=== PATIENT | male | born 1965 | race Caucasian/White ===

== ENCOUNTER 2017-10-22 09:09 | Day surgery (SDC) | payer BC ==
[2017-10-22] MEDS ORDERED: D5 LR 1000 ML 1,000 ML IV ONE (09:40)
[2017-10-22] MEDS ORDERED: DIPRIVAN VIAL 20 ML ONE (10:42)
[2017-10-22 13:29] VITALS: BP 120/67
== END 2017-10-22 11:22 | disposition home or self-care (01) ==
LOC: SURG1 09:09
PROVIDERS: ATTEND Internal Medicine Gastroenterology
PROC: 0DBN8ZX Excision of Sigmoid Colon, Via Natural or Artificial Opening Endoscopic, Diagnostic (ICD-10-PCS; principal; 2017-10-22 14:30)
PROC: 0DJD8ZZ Inspection of Lower Intestinal Tract, Via Natural or Artificial Opening Endoscopic (ICD-10-PCS; principal; 2017-10-22 14:30)
DX: Z12.11 Encounter for screening for malignant neoplasm of colon (principal); K63.5 Polyp of colon; K64.0 First degree hemorrhoids; D12.5 Benign neoplasm of sigmoid colon
CPT/HCPCS: A4217; J3490; J7120

== ENCOUNTER 2024-05-13 10:36 | Observation (INO) ==
[2024-05-13 12:06] LABS: BASOPHILS # (AUTO) 0.1 X10^3/uL (0.0-0.1); BASOPHILS % (AUTO) 0.6 % (0.2-1.0); EOSINOPHILS # (AUTO) 0.2 x10^3/uL (0.0-0.2); EOSINOPHILS % (AUTO) 1.6 % (0.9-2.9); HEMATOCRIT 29.8 % (42.0-54.0); HEMOGLOBIN 9.7 g/dL (13.5-18.0); LYMPHOCYTES # (AUTO) 0.7 X10^3/uL (1.3-2.9); LYMPHOCYTES % (AUTO) 5.8 % (21.0-51.0); MEAN CORPUSCULAR HEMOGLOBIN 24.6 pg (27.0-34.0); MEAN CORPUSCULAR HGB CONC 32.6 g/dL (33.0-35.0); MEAN CORPUSCULAR VOLUME 75.5 fL (80.0-100.0); MEAN PLATELET VOLUME 8.4 fL (7.4-11.0); MONOCYTES # (AUTO) 0.8 x10^3/uL (0.3-0.8); MONOCYTES % (AUTO) 6.8 % (0.0-13.0); NEUTROPHILS # (AUTO) 9.6 x10^3/uL (2.2-4.8); NEUTROPHILS % (AUTO) 85.2 % (42.0-75.0); PLATELET COUNT 188 X10^3/uL (150.0-450.0); RED BLOOD COUNT 3.94 X10^6/uL (4.7-6.0); RED CELL DISTRIBUTION WIDTH 15.5 % (11.6-16.5); WHITE BLOOD COUNT 11.2 X10^3/uL (3.6-10.0)
[2024-05-13 12:13] LABS: ALANINE AMINOTRANSFERASE 10 Units/L (12-78); ALBUMIN 2.8 g/dL (3.4-5.0); ALKALINE PHOSPHATASE 95 Units/L (46-116); ASPARTATE AMINO TRANSFERASE < 6 Units/L (15-37); BLOOD UREA NITROGEN 29 mg/dL (7-18); CARBON DIOXIDE 33.5 mmol/L (21-32); CHLORIDE 93 mmol/L (98-107); COR NA(FOR HYPERGLY) 140 mmol/L (136-145); CREATININE 1.43 mg/dL (0.70-1.30); GLUCOSE 317 mg/dL (65-99); LIPASE 20 Units/L (16-77); POTASSIUM 4.1 mmol/L (3.5-5.1); SODIUM 135 mmol/L (136-145); TOTAL PROTEIN 6.9 g/dL (6.4-8.2); eGFR NON BLACK RACES 54 (>60)
[2024-05-13] MEDS: NS 1,000 ML IV 1,000 ML IV SCH (13:12)
[2024-05-13 13:17] VITALS: BMI 20.9
[2024-05-13] MEDS: DEMEROL INJ IVP PRN (13:30)
[2024-05-13] MEDS: ZOFRAN INJ 4 MG VIAL IVP PRN (13:30)
[2024-05-13] MEDS ORDERED: OMNIPAQUE 350 mg/mL 100 mL BTL 100 ML ONE ×2 (13:41→17:08)
[2024-05-13 13:48] LABS: IRON 19 ug/dL (50-175); TOTAL IRON BINDING CAPACITY 142 ug/dL (250-450)
[2024-05-13] MEDS: LOVENOX INJ 40 MG SYR SC SCH (14:55)
[2024-05-13] MEDS ORDERED: NS 100 ML IV 100 ML ONE (17:08)
--- NOTE | 2024-05-13 18:21 | CT ---
EXAM:ABDCMEN/PELVIS WITH CONHISTORY:abdominal pain; LIVER TRANSPLANT [id number]:April 12, 2024 and April 16, 2020TECHNIQUE:Axial CT images of the abdomen and pelvis were obtained after the administration of 100 mL Omnipaque 350 IV contrast and reformatted into coronal and sagittal planes for further evaluation.Radiation dose: 193.41 mGy-cm total DLPFINDINGS:6 mm right lower lobe nodule; without significant change when compared to April 16, 2020.Distal esophageal wall thickening.Stomach appears normal.Heterogeneous mass in the pancreatic head measuring approximately 10 x 7.8 x 10.4 cm.Catheter extending from the anterior aspect of the mass into the pyloric region of the stomach.Atrophy of the pancreatic tail with mild dilatation of the main pancreatic duct.Spleen, adrenal glands and liver are grossly unremarkable.Status post cholecystectomy.Thrombus within the partially obstructed portal vein as seen on axial images 40-46.Homogeneous enhancement of the kidneys without hydronephrosis or hydroureter.Unremarkable appearance of the urinary bladder.Imaged reproductive structures are unremarkable.Unremarkable appearance of the large and small bowel.No evidence of acute appendicitis.No pneumoperitoneum.No significant fluid collection.No adenopathy.No acute osseous abnormality.Partially imaged soft tissue density adjacent to the posterior right T7 rib.Status post vertebroplasty at L2 and L4.IMPRESSION:1. Low-attenuation heterogeneous mass in the pancreatic head measuring 10 x 7.8 x 10.4 cm 7; significantly enlarged when compared to the previous exam. Finding is most consistent with a malignancy such as adenocarcinoma; correlate clinically.2. Partially imaged soft tissue density adjacent to the posterior right T7 rib. Finding is concerning for metastatic disease.3. Thrombus within the partially obstructed portal vein as seen on axial images 40-46.4. Mild distal esophageal wall thickening could represent esophagitis.THIS IS AN ELECTRONICALLY VERIFIED FINAL REPORT05/13/2024 6:18 PM - Electronically signed by Wil Rahman MD
[2024-05-13 19:19] LABS: BILIRUBIN,URINE NEGATIVE (NEGATIVE); BLOOD/HEMOGLOBIN,URINE NEGATIVE (NEGATIVE); GLUCOSE, URINE 4+ (NEGATIVE); KETONES,URINE 3+ (NEGATIVE); LEUKOCYTE ESTERASE ,URINE NEGATIVE (NEGATIVE); NITRITES,URINE NEGATIVE (NEGATIVE); PROTEIN,URINE 2+ (NEGATIVE); UROBILINOGEN,URINE NORMAL (NORMAL)
[2024-05-13 19:21] LABS: APPEARANCE,URINE TURBID (CLEAR); COLOR,URINE PALE YELLOW (YELLOW)
[2024-05-13 19:28] LABS: BACTERIA,URINE 4+ /HPF (NEGATIVE); RBC,URINE NONE SEEN /HPF (0-3); SQUAMOUS EPITHELIAL CELL,UR RARE /HPF (NEGATIVE)
[2024-05-13] MEDS: MAALOX or MYLANTA PO PRN (21:04)
[2024-05-13] MEDS: SNACK - Diabetic Appropriate PO SCH (23:14)
[2024-05-14] MEDS ORDERED: PHENERGAN INJ 25 MG IM ONE (05:24)
[2024-05-14] MEDS: PHENERGAN INJ 25 MG IM PRN (05:28)
[2024-05-14 05:56] LABS: BASOPHILS # (AUTO) 0.1 X10^3/uL (0.0-0.1); BASOPHILS % (AUTO) 1.2 % (0.2-1.0); EOSINOPHILS # (AUTO) 0.3 x10^3/uL (0.0-0.2); EOSINOPHILS % (AUTO) 2.4 % (0.9-2.9); HEMATOCRIT 31.2 % (42.0-54.0); HEMOGLOBIN 10.2 g/dL (13.5-18.0); LYMPHOCYTES # (AUTO) 0.8 X10^3/uL (1.3-2.9); LYMPHOCYTES % (AUTO) 7.6 % (21.0-51.0); MEAN CORPUSCULAR HGB CONC 32.9 g/dL (33.0-35.0); MEAN PLATELET VOLUME 8.7 fL (7.4-11.0); MONOCYTES # (AUTO) 0.7 x10^3/uL (0.3-0.8); MONOCYTES % (AUTO) 6.7 % (0.0-13.0); NEUTROPHILS # (AUTO) 8.5 x10^3/uL (2.2-4.8); NEUTROPHILS % (AUTO) 82.1 % (42.0-75.0); PLATELET COUNT 193 X10^3/uL (150.0-450.0); RED CELL DISTRIBUTION WIDTH 15.3 % (11.6-16.5); WHITE BLOOD COUNT 10.3 X10^3/uL (3.6-10.0)
[2024-05-14 06:03] LABS: ALANINE AMINOTRANSFERASE 8 Units/L (12-78); ALBUMIN 2.8 g/dL (3.4-5.0); ALKALINE PHOSPHATASE 95 Units/L (46-116); ASPARTATE AMINO TRANSFERASE < 6 Units/L (15-37); BLOOD UREA NITROGEN 25 mg/dL (7-18); CALCIUM 8.9 mg/dL (8.5-10.1); CARBON DIOXIDE 30.7 mmol/L (21-32); CHLORIDE 94 mmol/L (98-107); COR CA(FOR HYPOALB) 9.9 mg/dL (8.5-10.1); COR NA(FOR HYPERGLY) 140 mmol/L (136-145); CREATININE 1.19 mg/dL (0.70-1.30); GLUCOSE 263 mg/dL (65-99); POTASSIUM 3.9 mmol/L (3.5-5.1); SODIUM 136 mmol/L (136-145); TOTAL PROTEIN 6.9 g/dL (6.4-8.2); eGFR NON BLACK RACES > 60 (>60)
[2024-05-14] MEDS ORDERED: OMNIPAQUE 350 mg/mL 100 mL BTL 100 ML ONE (11:31)
[2024-05-14] MEDS ORDERED: AMBIEN PO PRN (11:40)
[2024-05-14] MEDS ORDERED: LEXAPRO ONE (12:07)
[2024-05-14] MEDS: DIFLUCAN 200 MG IV PREMIX* 200 MG/100 ML BAG IV SCH (12:23)
[2024-05-14] MEDS: PEPCID TAB 40 MG PO SCH (12:24)
[2024-05-14] MEDS: TAB-A-VITE PO SCH (12:24)
[2024-05-14] MEDS: TACROLIMUS PO SCH (12:25)
[2024-05-14] MEDS: LEXAPRO PO SCH (12:25)
[2024-05-14] MEDS: CHECK PATCH XX SCH (12:26)
[2024-05-14] MEDS: REQUIP PO SCH ×2 (12:32→20:28)
[2024-05-14] MEDS: PATIENT'S HOME MEDICATION PO SCH (12:35)
[2024-05-14] MEDS: NYSTATIN SUSP PO SCH (12:51)
[2024-05-14] MEDS ORDERED: [UNRECOGNIZED DRUG - REMARK] XX SCH (13:00)
[2024-05-14] MEDS: NovoLIN R (or HumuLIN R) SUBCUT PRN (13:02)
--- NOTE | 2024-05-14 13:33 | DR.H&P ---
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 He was directly admitted after failing outpatient treatment by his pcp. Labs/imaging: Wbc 11.2, Hgb 9.7, Plt 188, Na 136, K 3.9, Creatinine 1.19, Glucose 263, Lipase 20. Patient was admitted for abdominal pain and dehydration. Will get CT abdomen and pelvis for further evaluation. IV dilaudid prn for pain control. Antiemetics. IVF NS@125ml/h. Restart home medications after imaging. Otherwise, continue with current treatment plan. Continue to closely monitor and follow up labs/imaging. Past Medical History Past Medical History: Arthritis and Liver Disease Past Surgical History Surgical History: CABG/Valve Surgery, Cholecystectomy and Organ Transplant Family History Family Medical History: Diabetes Mellitus, Cancer, Coronary Artery Disease and Hypertension Social History Does patient currently use any type of tobacco product: No Type of Tobacco Use: None Alcohol Use: None Drug Use: None Medications Home Medications: Home Medications Medication Instructions Recorded Confirmed Type magnesium oxide 400 mg (241.3 mg 800 mg PO BID 09/24/16 05/13/24 History magnesium) tablet multivitamin (Tab-A-Oren tablet) 1 tab PO DAILY 09/24/16 05/13/24 History mycophenolate mofetil 250 mg 500 mg PO BID 09/24/16 05/13/24 History capsule (CellCept) aspirin 81 mg tablet,delayed 81 mg PO QDAY 04/12/24 05/13/24 History release escitalopram oxalate 10 mg tablet 10 mg PO QDAY 04/12/24 05/13/24 History famotidine 40 mg tablet 40 mg PO QDAY 04/12/24 05/13/24 History hydrocodone 10 mg-acetaminophen 1 tab PO QDAY PRN 04/12/24 05/13/24 History 325 mg tablet ropinirole 4 mg tablet 4 mg PO HS 04/12/24 05/14/24 History rotigotine 8 mg/24 hour 1 patch transdermal QDAY restless 04/12/24 05/13/24 History transdermal 24 hour patch (Neupro) legs tacrolimus 1 mg capsule, 2 mg PO BID 04/12/24 05/13/24 History immediate-release zolpidem 10 mg tablet 10 mg PO QPM 04/12/24 05/13/24 History amoxicillin 875 mg-potassium 1 tab PO BID 05/13/24 05/13/24 History clavulanate 125 mg tablet hydromorphone 4 mg tablet 4 mg PO QID PRN pain 05/13/24 05/13/24 History ondansetron HCl 4 mg tablet 4 mg PO Q8H PRN nausea 05/13/24 05/13/24 History Allergies Allergies Allergy/AdvReac Type Severity Reaction Status Date / Time No Known Allergies Allergy Verified 04/12/24 13:10 Labs 05/14/24 05:26 05/14/24 05:26 Labs: 05/13/24 19:05 Urine,Clean Catch Urine Culture - Preliminary Laboratory WBC 10.3 X10^3/uL (3.6-10.0) H 05/14/24 05:26 RBC 4.10 X10^6/uL (4.7-6.0) L 05/14/24 05:26 Hgb 10.2 g/dL (13.5-18.0) L 05/14/24 05:26 Hct 31.2 % (42.0-54.0) L 05/14/24 05:26 MCV 76.0 fL (80.0-100.0) L 05/14/24 05:26 MCH 25.0 pg (27.0-34.0) L 05/14/24 05:26 MCHC 32.9 g/dL (33.0-35.0) L 05/14/24 05:26 RDW 15.3 % (11.6-16.5) 05/14/24 05:26 Plt Count 193 X10^3/uL (150.0-450.0) 05/14/24 05:26 Plt Count Comment Cancelled 05/14/24 05:26 MPV 8.7 fL (7.4-11.0) 05/14/24 05:26 Neut % (Auto) 82.1 % (42.0-75.0) H 05/14/24 05:26 Lymph % (Auto) 7.6 % (21.0-51.0) L 05/14/24 05:26 [place] % (Auto) 6.7 % (0.0-13.0) 05/14/24 05:26 Eos % (Auto) 2.4 % (0.9-2.9) 05/14/24 05:26 Baso % (Auto) 1.2 % (0.2-1.0) H 05/14/24 05:26 Neut # (Auto) 8.5 x10^3/uL (2.2-4.8) H 05/14/24 05:26 Lymph # (Auto) 0.8 X10^3/uL (1.3-2.9) L 05/14/24 05:26 [place] # (Auto) 0.7 x10^3/uL (0.3-0.8) 05/14/24 05:26 Eos # (Auto) 0.3 x10^3/uL (0.0-0.2) H 05/14/24 05:26 Baso # (Auto) 0.1 X10^3/uL (0.0-0.1) 05/14/24 05:26 Absolute Nucleated RBC 0.0 /100WBC 05/14/24 05:26 Nucleated RBCs Cancelled 05/14/24 05:26 Atypical Lymphocytes Cancelled 05/14/24 05:26 Blast Cells Cancelled 05/14/24 05:26 Smudge Cells Cancelled 05/14/24 05:26 Toxic Granulation Cancelled 05/14/24 05:26 Dohle Bodies Cancelled 05/14/24 05:26 Adis Rods Cancelled 05/14/24 05:26 Plt Clumps, EDTA Cancelled 05/14/24 05:26 Giant Platelets Cancelled 05/14/24 05:26 Plt Morphology Comment Cancelled 05/14/24 05:26 RBC Morphology Cancelled 05/14/24 05:26 Dimorphic RBCs Cancelled 05/14/24 05:26 Polychromasia Cancelled 05/14/24 05:26 Hypochromasia Cancelled 05/14/24 05:26 Poikilocytosis Cancelled 05/14/24 05:26 Basophilic Stippling Cancelled 05/14/24 05:26 Anisocytosis Cancelled 05/14/24 05:26 Microcytosis Cancelled 05/14/24 05:26 Macrocytosis Cancelled 05/14/24 05:26 Spherocytes Cancelled 05/14/24 05:26 Pappenheimer Bodies Cancelled 05/14/24 05:26 Sickle Cells Cancelled 05/14/24 05:26 Target Cells Cancelled 05/14/24 05:26 Tear Drop Cells Cancelled 05/14/24 05:26 Ovalocytes Cancelled 05/14/24 05:26 Stomatocytes Cancelled 05/14/24 05:26 Helmet Cells Cancelled 05/14/24 05:26 [place] Bodies Cancelled 05/14/24 05:26 [place] Rings Cancelled 05/14/24 05:26 [place] Cells Cancelled 05/14/24 05:26 Crenated Cell Cancelled 05/14/24 05:26 Acanthocytes (Spur) Cancelled 05/14/24 05:26 Rouleaux Cancelled 05/14/24 05:26 Schistocytes Cancelled 05/14/24 05:26 Sodium 136 mmol/L (136-145) 05/14/24 05:26 Corrected Sodium 140 mmol/L (136-145) 05/14/24 05:26 Potassium 3.9 mmol/L (3.5-5.1) 05/14/24 05:26 Chloride 94 mmol/L (98-107) L 05/14/24 05:26 Carbon Dioxide 30.7 mmol/L (21-32) 05/14/24 05:26 BUN 25 mg/dL (7-18) H 05/14/24 05:26 Creatinine 1.19 mg/dL (0.70-1.30) 05/14/24 05:26 Est GFR (MDRD) Af Amer > 60 (>60) 05/14/24 05:26 Est GFR (MDRD) Non-Af > 60 (>60) 05/14/24 05:26 Glucose 263 mg/dL (65-99) H 05/14/24 05:26 POC Glucose (mg/dL) 306 mg/dL (65-99) H 05/14/24 12:48 Hemoglobin A1c 7.7 % 05/13/24 11:50 Calcium 8.9 mg/dL (8.5-10.1) 05/14/24 05:26 Corrected Calcium 9.9 mg/dL (8.5-10.1) 05/14/24 05:26 Iron 19 ug/dL (50-175) L 05/13/24 11:50 TIBC 142 ug/dL (250-450) L 05/13/24 11:50 Ferritin 2449 ng/mL (26-388) H 05/13/24 11:50 Total Bilirubin 0.60 mg/dL (0.2-1.0) 05/14/24 05:26 AST < 6 Units/L (15-37) L 05/14/24 05:26 ALT 8 Units/L (12-78) L 05/14/24 05:26 Alkaline Phosphatase 95 Units/L (46-116) 05/14/24 05:26 Total Protein 6.9 g/dL (6.4-8.2) 05/14/24 05:26 Albumin 2.8 g/dL (3.4-5.0) L 05/14/24 05:26 Globulin 4.1 g/dL (2.5-4.5) 05/14/24 05:26 Albumin/Globulin Ratio 0.7 Ratio (1.1-2.1) L 05/14/24 05:26 Lipase 20 Units/L (16-77) 05/13/24 11:50 Specimen Type Clean catch urine 05/13/24 19:05 Urine Color Pale yellow (YELLOW) 05/13/24 19:05 Urine Appearance Turbid (CLEAR) 05/13/24 19:05 Urine pH 6.0 (5.0 - 8.0) 05/13/24 19:05 Ur Specific [place] 1.030 (1.000-1.030) 05/13/24 19:05 Urine Protein 2+ (NEGATIVE) 05/13/24 19:05 Urine Glucose (UA) 4+ (NEGATIVE) 05/13/24 19:05 Urine Ketones 3+ (NEGATIVE) 05/13/24 19:05 Urine Blood Negative (NEGATIVE) 05/13/24 19:05 Urine Nitrite Negative (NEGATIVE) 05/13/24 19:05 Urine Bilirubin Negative (NEGATIVE) 05/13/24 19:05 Urine Urobilinogen Normal (NORMAL) 05/13/24 19:05 Ur Leukocyte Esterase Negative (NEGATIVE) 05/13/24 19:05 Urine RBC None seen /HPF (0-3) 05/13/24 19:05 Urine WBC 0-2 /HPF (0-5) 05/13/24 19:05 Ur Squamous Epith Cells Rare /HPF (NEGATIVE) 05/13/24 19:05 Amorphous Sediment 1+ /HPF (NEGATIVE) 05/13/24 19:05 Urine Bacteria 4+ /HPF (NEGATIVE) 05/13/24 19:05 Ur Culture Indicated? Yes/culture set up 05/13/24 19:05 Review of Systems Constitutional: No Symptoms Reported Eyes: No Symptoms Reported ENT: No Symptoms Reported Respiratory: No Symptoms Reported Cardiovascular: No Symptoms Reported Gastrointestinal: Nausea, Vomiting and Abdominal Pain Genitourinary: No Symptoms Reported Musculoskeletal: No Symptoms Reported Skin: No Symptoms Reported Neurological: No Symptoms Reported Physical Exam Vital Signs: Vital Signs Temperature 97.5 F Pulse Rate [Left Brachial] 105 Respiratory Rate 18 Respiratory Rate 18 Respiratory Rate 18 Blood Pressure [Right Arm] 129/77 O2 Sat by Pulse Oximetry 96 Oriented: Normal Eyes: Normal Ear: Normal Nose: Normal Throat: Normal Respiratory: Clear Throughout Cardiovascular: Normal : Normal Auscultation: Bowel Sounds: Decreased Palpation: Normal Tenderness: Diffuse Skin: Normal Musculoskeletal: Normal Psychiatric: Normal Mood Description: Calm and Appropriate Affect: Normal Speech Pattern: Clear and Appropriate Assessment/Plan (1) Acute upper abdominal pain: Status: Acute Plan: Pain control, antiemetics IVF, order CT abdomen and pelvis (2) Dehydration: Status: Acute (3) Cystic mass of pancreas: Status: Acute Review H&P Reviewed: Yes Patient was examined?: Yes
--- NOTE | 2024-05-14 13:45 | NOTE.SOAP ---
Soap Note Note for Day of Date of Exam: 05/14/24 Subjective Data Subjective Data: AM rounds with nurse and spouse at bedside. No change to pain. Wants to try to eat. CTAP w/ contrast concerning for metastatic disease. Spouse reports negative testing last week with biopsy report and serum studies. Full records pending. Objective Data Objective Data: Pained facies. Appropriate mood. A&Ox4. Hypoactive bowel sounds with epigastric tenderness. RRR. Lungs CTA b/l. Assessment Assessment: 1. Pancreatic mass (seems to be pseudocyst, but concern for adenocarcinoma on CTAP) 2. Lung mass, scarring vs metastasis. 3. epigastric pain Plan Plan: CT chest with contrast today. Fentanyl patch. Resume home meds. Full liquid diet. Obtain recent study results.
[2024-05-14] MEDS: MAG-OX TAB PO SCH (16:19)
[2024-05-14] MEDS ORDERED: ZOFRAN INJ 4 MG VIAL ONE (18:46)
[2024-05-14] MEDS ORDERED: NS 50 ML IV 50 ML IV ONE (18:47)
[2024-05-14] MEDS ORDERED: DECADRON INJ ONE (18:47)
[2024-05-14] MEDS ORDERED: ATIVAN INJ 2 MG VIAL ONE (18:49)
[2024-05-14] MEDS: ZOFRAN INJ 4 MG VIAL 16 MG, ATIVAN INJ 2 MG VIAL 1 MG, DECADRON INJ 10 MG in NS 50 ML I... IV PRN (19:06)
[2024-05-14] MEDS: COLACE CAP 100 MG PO SCH (20:31)
[2024-05-14] MEDS: AMBIEN PO SCH (20:32)
--- NOTE | 2024-05-14 23:29 | CT ---
EXAM: CHEST WITH CONTRAST HISTORY: R/O metestatic neoplasm; SX: LIVER TRANSPLANT X2, LUMBAR SX COMPARISON: March 15, 2021 TECHNIQUE: Axial CT images of the chest were obtained after the administration of 100 mL Omnipaque [address] Images were reformatted into the coronal and sagittal planes for further evaluation. Radiation dose: 207.32 mGy-cm total DLP FINDINGS: No pericardial effusion. Aorta and pulmonary arteries are normal in caliber. No hilar or mediastinal adenopathy. Thyroid appears normal. Central airways are widely patent. Mild distal esophageal wall thickening. Heterogeneous masslike foci involving the pancreatic head and uncinate process with atrophy of the pa ncreatic tail. Heterogeneous low-attenuation mass measures approximately 12 x 11.5 x 9.6 cm. [place] ge stent extending from the masslike foci to the distal body of the stomach through a bilobed tubular device placed in the anterior aspect of the masslike foci. Status post cholecystectomy. Partial obstruction of the portal vein adjacent to the masslike foci as seen on axial images 71-73. Mass along the posteromedial aspect of the right thoracic pleura abutting the posterior 7th right rib where there are erosive changes within the rib as seen on axial image 28. 6 mm right lower lobe nodule as seen on axial image 38. No effusion, focal infiltrate or pneumothorax. IMPRESSION: 1. Soft tissue mass along the posterior aspect of the right thoracic pleura abutting the posterior 7t h right rib where there are erosive changes. Findings are concerning for metastatic disease. 2. Low-attenuation heterogeneous multilobulated mass which appears to involve the pancreatic head and uncinate process with associated atrophy of the pancreatic tail. Findings are concerning for a neop lastic process such as adenocarcinoma. Findings could also less likely represent a necrotic collecti on related to prior necrotizing pancreatitis. Correlate clinically as there is a drainage catheter i n place positioned through a bilobed cyst gastrostomy. THIS IS AN ELECTRONICALLY VERIFIED FINAL REPORT 05/14/2024 11:26 PM - Electronically signed by Wil Rahman MD
[2024-05-15 05:11] VITALS: O2SAT 97
[2024-05-15 05:48] LABS: BASOPHILS % (AUTO) 0.1 % (0.2-1.0); EOSINOPHILS % (AUTO) 0.2 % (0.9-2.9); HEMATOCRIT 26.1 % (42.0-54.0); HEMOGLOBIN 8.6 g/dL (13.5-18.0); LYMPHOCYTES # (AUTO) 0.4 X10^3/uL (1.3-2.9); LYMPHOCYTES % (AUTO) 4.9 % (21.0-51.0); MEAN CORPUSCULAR HEMOGLOBIN 25.4 pg (27.0-34.0); MEAN CORPUSCULAR HGB CONC 32.7 g/dL (33.0-35.0); MEAN CORPUSCULAR VOLUME 77.6 fL (80.0-100.0); MEAN PLATELET VOLUME 8.9 fL (7.4-11.0); MONOCYTES # (AUTO) 0.2 x10^3/uL (0.3-0.8); MONOCYTES % (AUTO) 2.6 % (0.0-13.0); NEUTROPHILS # (AUTO) 6.6 x10^3/uL (2.2-4.8); NEUTROPHILS % (AUTO) 92.2 % (42.0-75.0); PLATELET COUNT 164 X10^3/uL (150.0-450.0); RED BLOOD COUNT 3.37 X10^6/uL (4.7-6.0); RED CELL DISTRIBUTION WIDTH 15.2 % (11.6-16.5); WHITE BLOOD COUNT 7.1 X10^3/uL (3.6-10.0)
[2024-05-15 06:01] LABS: ALANINE AMINOTRANSFERASE 12 Units/L (12-78); ALBUMIN 2.6 g/dL (3.4-5.0); ALKALINE PHOSPHATASE 79 Units/L (46-116); ASPARTATE AMINO TRANSFERASE 10 Units/L (15-37); BLOOD UREA NITROGEN 30 mg/dL (7-18); CALCIUM 8.5 mg/dL (8.5-10.1); CARBON DIOXIDE 33.5 mmol/L (21-32); CHLORIDE 96 mmol/L (98-107); COR CA(FOR HYPOALB) 9.6 mg/dL (8.5-10.1); COR NA(FOR HYPERGLY) 144 mmol/L (136-145); CREATININE 1.36 mg/dL (0.70-1.30); GLUCOSE 357 mg/dL (65-99); SODIUM 138 mmol/L (136-145); TOTAL PROTEIN 6.2 g/dL (6.4-8.2); eGFR NON BLACK RACES 57 (>60)
[2024-05-15 06:23] LABS: BAND NEUTROPHILS % 3 % (0-10)
[2024-05-15 06:24] LABS: PLATELET MORPHOLOGY COMMENT NORMAL (NORMAL)
[2024-05-15 06:25] LABS: HYPOCHROMASIA SLIGHT; MICROCYTOSIS SLIGHT
[2024-05-15] MEDS: PATIENT'S HOME MEDICATION PO SCH (09:07)
[2024-05-15 09:22] VITALS: TEMP 98.1
[2024-05-15 11:39] VITALS: BP 122/69; PULSE 77
[2024-05-15 14:03] VITALS: RESP 24
[2024-05-15] MEDS: DEMEROL INJ IVP ONE (14:03)
--- NOTE | 2024-05-16 08:47 | PCM.DCPLAN ---
DISCHARGE SUMMARY Admission Date Date of Admission: 05/12/24 Discharge Date Discharge Date: 05/15/24 Admission Diagnoses (1) Acute upper abdominal pain: Status: Acute (2) Dehydration: Status: Acute (3) Cystic mass of pancreas: Status: Acute (4) Rib lesion: Status: Acute Discharge Medications Discharge Medications: Home Medication List amoxicillin 875 mg-potassium clavulanate 125 mg tablet 1 tab PO BID 05/13/24 [History] hydromorphone 4 mg tablet 4 mg PO QID PRN pain 05/13/24 [History] ondansetron HCl 4 mg tablet 4 mg PO Q8H PRN nausea 05/13/24 [History] Prescriptions: Hospital Course Vital Signs: Vital Signs Temperature 98.1 F Pulse Rate [Left Brachial] 77 Respiratory Rate 24 Respiratory Rate 24 Respiratory Rate 20 Respiratory Rate 24 Respiratory Rate 24 Blood Pressure [Right Arm] 122/69 O2 Sat by Pulse Oximetry 97 Latest Lab Results: Laboratory Last Values WBC 7.1 X10^3/uL (3.6-10.0) 05/15/24 05:11 RBC 3.37 X10^6/uL (4.7-6.0) L 05/15/24 05:11 Hgb 8.6 g/dL (13.5-18.0) L 05/15/24 05:11 Hct 26.1 % (42.0-54.0) L 05/15/24 05:11 MCV 77.6 fL (80.0-100.0) L 05/15/24 05:11 MCH 25.4 pg (27.0-34.0) L 05/15/24 05:11 MCHC 32.7 g/dL (33.0-35.0) L 05/15/24 05:11 RDW 15.2 % (11.6-16.5) 05/15/24 05:11 Plt Count 164 X10^3/uL (150.0-450.0) 05/15/24 05:11 Plt Count Comment Adequate (ADEQUATE) 05/15/24 05:11 MPV 8.9 fL (7.4-11.0) 05/15/24 05:11 Neut % (Auto) 92.2 % (42.0-75.0) H 05/15/24 05:11 Lymph % (Auto) 4.9 % (21.0-51.0) L 05/15/24 05:11 [place] % (Auto) 2.6 % (0.0-13.0) 05/15/24 05:11 Eos % (Auto) 0.2 % (0.9-2.9) L 05/15/24 05:11 Baso % (Auto) 0.1 % (0.2-1.0) L 05/15/24 05:11 Neut # (Auto) 6.6 x10^3/uL (2.2-4.8) H 05/15/24 05:11 Lymph # (Auto) 0.4 X10^3/uL (1.3-2.9) L 05/15/24 05:11 [place] # (Auto) 0.2 x10^3/uL (0.3-0.8) L 05/15/24 05:11 Eos # (Auto) 0.0 x10^3/uL (0.0-0.2) 05/15/24 05:11 Baso # (Auto) 0.0 X10^3/uL (0.0-0.1) 05/15/24 05:11 Absolute Nucleated RBC 0.0 /100WBC 05/15/24 05:11 Total Counted 100 05/15/24 05:11 Neutrophils % (Manual) 90 % (39-76) H 05/15/24 05:11 Band Neutrophils % 3 % (0-10) 05/15/24 05:11 Lymphocytes % (Manual) 5 % (13-43) L 05/15/24 05:11 Monocytes % (Manual) 2 % (4-9) L 05/15/24 05:11 Nucleated RBCs Cancelled 05/14/24 05:26 Atypical Lymphocytes Cancelled 05/14/24 05:26 Blast Cells Cancelled 05/14/24 05:26 Smudge Cells Cancelled 05/14/24 05:26 Toxic Granulation Cancelled 05/14/24 05:26 Dohle Bodies Cancelled 05/14/24 05:26 Adis Rods Cancelled 05/14/24 05:26 Plt Clumps, EDTA Cancelled 05/14/24 05:26 Giant Platelets Cancelled 05/14/24 05:26 Plt Morphology Comment Normal (NORMAL) 05/15/24 05:11 RBC Morphology Abnormal (NORMAL) 05/15/24 05:11 Dimorphic RBCs Cancelled 05/14/24 05:26 Polychromasia Cancelled 05/14/24 05:26 Hypochromasia Slight A 05/15/24 05:11 Poikilocytosis Cancelled 05/14/24 05:26 Basophilic Stippling Cancelled 05/14/24 05:26 Anisocytosis Cancelled 05/14/24 05:26 Microcytosis Slight A 05/15/24 05:11 Macrocytosis Cancelled 05/14/24 05:26 Spherocytes Cancelled 05/14/24 05:26 Pappenheimer Bodies Cancelled 05/14/24 05:26 Sickle Cells Cancelled 05/14/24 05:26 Target Cells Cancelled 05/14/24 05:26 Tear Drop Cells Cancelled 05/14/24 05:26 Ovalocytes Cancelled 05/14/24 05:26 Stomatocytes Cancelled 05/14/24 05:26 Helmet Cells Cancelled 05/14/24 05:26 [place] Bodies Cancelled 05/14/24 05:26 [place] Cancelled 05/14/24 05:26 [place] Cells Cancelled 05/14/24 05:26 Crenated Cell Cancelled 05/14/24 05:26 Acanthocytes (Spur) Cancelled 05/14/24 05:26 Rouleaux Cancelled 05/14/24 05:26 Schistocytes Cancelled 05/14/24 05:26 Sodium 138 mmol/L (136-145) 05/15/24 05:11 Corrected Sodium 144 mmol/L (136-145) 05/15/24 05:11 Potassium 4.0 mmol/L (3.5-5.1) 05/15/24 05:11 Chloride 96 mmol/L (98-107) L 05/15/24 05:11 Carbon Dioxide 33.5 mmol/L (21-32) H 05/15/24 05:11 BUN 30 mg/dL (7-18) H 05/15/24 05:11 Creatinine 1.36 mg/dL (0.70-1.30) H 05/15/24 05:11 Est GFR (MDRD) Af Amer > 60 (>60) 05/15/24 05:11 Est GFR (MDRD) Non-Af 57 (>60) L 05/15/24 05:11 Glucose 357 mg/dL (65-99) H 05/15/24 05:11 POC Glucose (mg/dL) 215 mg/dL (65-99) H 05/15/24 12:52 Hemoglobin A1c 7.7 % 05/13/24 11:50 Calcium 8.5 mg/dL (8.5-10.1) 05/15/24 05:11 Corrected Calcium 9.6 mg/dL (8.5-10.1) 05/15/24 05:11 Iron 19 ug/dL (50-175) L 05/13/24 11:50 TIBC 142 ug/dL (250-450) L 05/13/24 11:50 Ferritin 2449 ng/mL (26-388) H 05/13/24 11:50 Total Bilirubin 0.40 mg/dL (0.2-1.0) 05/15/24 05:11 AST 10 Units/L (15-37) L 05/15/24 05:11 ALT 12 Units/L (12-78) 05/15/24 05:11 Alkaline Phosphatase 79 Units/L (46-116) 05/15/24 05:11 Total Protein 6.2 g/dL (6.4-8.2) L 05/15/24 05:11 Albumin 2.6 g/dL (3.4-5.0) L 05/15/24 05:11 Globulin 3.6 g/dL (2.5-4.5) 05/15/24 05:11 Albumin/Globulin Ratio 0.7 Ratio (1.1-2.1) L 05/15/24 05:11 Lipase 20 Units/L (16-77) 05/13/24 11:50 Specimen Type Clean catch urine 05/13/24 19:05 Urine Color Pale yellow (YELLOW) 05/13/24 19:05 Urine Appearance Turbid (CLEAR) 05/13/24 19:05 Urine pH 6.0 (5.0 - 8.0) 05/13/24 19:05 Ur Specific [place] 1.030 (1.000-1.030) 05/13/24 19:05 Urine Protein 2+ (NEGATIVE) 05/13/24 19:05 Urine Glucose (UA) 4+ (NEGATIVE) 05/13/24 19:05 Urine Ketones 3+ (NEGATIVE) 05/13/24 19:05 Urine Blood Negative (NEGATIVE) 05/13/24 19:05 Urine Nitrite Negative (NEGATIVE) 05/13/24 19:05 Urine Bilirubin Negative (NEGATIVE) 05/13/24 19:05 Urine Urobilinogen Normal (NORMAL) 05/13/24 19:05 Ur Leukocyte Esterase Negative (NEGATIVE) 05/13/24 19:05 Urine RBC None seen /HPF (0-3) 05/13/24 19:05 Urine WBC 0-2 /HPF (0-5) 05/13/24 19:05 Ur Squamous Epith Cells Rare /HPF (NEGATIVE) 05/13/24 19:05 Amorphous Sediment 1+ /HPF (NEGATIVE) 05/13/24 19:05 Urine Bacteria 4+ /HPF (NEGATIVE) 05/13/24 19:05 Ur Culture Indicated? Yes/culture set up 05/13/24 19:05 Stl Occult Blood (IFOB) Positive (NEGATIVE) A 05/14/24 17:50 Hospital Course: Patient admitted from PCPs office due to concern about acute pancreatitis. Patient with a recent gastrotomy tube placement due to pancreatic pseudocyst in [place]. According to spouse and patient the biopsy findings were negative for malignant disease. He was supposed to have follow-up CEA, CA 19, CBC, CMP, and CT AP done afterwards. These were done in [facility]. CT showed the gastrotomy drain with no other concerning findings. IR CT showed more concern for pancreatic adenocarcinoma then necrotic pseudocyst changes. It also showed a stable right lung nodule but a new nodule on the posterior right seventh rib. Follow-up CT chest with contrast was concern for erosive disease. After long discussion with patient and spouse, they elected to go home so that they could try to have follow-up with her GI specialist in [place]. Staying 1 more day to allow us and the nurses to assist with this discussion was considered but declined. Patient's pain was much improved and pancreatitis was ruled out on day 1. He was discharged home in improved but guarded condition to home. Cancer marker labs were still pending.
== END 2024-05-15 16:05 | disposition home or self-care (01) ==
LOC: MED/SURG
PROVIDERS: ADMIT Internal Medicine; ATTEND Internal Medicine
DX: E86.0 Dehydration; R91.8 Other nonspecific abnormal finding of lung field; R10.84 Generalized abdominal pain; E11.65 Type 2 diabetes mellitus with hyperglycemia; R22.2 Localized swelling, mass and lump, trunk; Z94.4 Liver transplant status; K92.1 Melena; K86.2 Cyst of pancreas